=== PATIENT | female | born 1995 | race Caucasian/White ===

== ENCOUNTER 2016-09-10 16:01 | Inpatient (IN) | payer OTHER ==
[~2016-09-10] VITALS: Ht 157.5 cm; Wt 79.8 kg
[2016-09-10 16:43] LABS: HEMOGLOBIN 11.5 gm/dl (12.3-15.3); RED BLOOD COUNT 4.48 M/UL (4.00-5.10); WHITE BLOOD COUNT 6.5 K/UL (4.5-11.0)
[2016-09-12 03:20] LABS: HEMOGLOBIN 11.9 gm/dl (12.3-15.3)
[2016-09-13] MEDS ORDERED: IBUPROFEN600 MG PO (09:22)
== END 2016-09-13 08:18 | disposition home or self-care (01) | DRG 775 ==
LOC: EDBD 16:01 → OB 16:01
PROVIDERS: Obstetrics & Gynecology; ADMIT Obstetrics & Gynecology
PROC: 3E0P7GC Introduction of Other Therapeutic Substance into Female Reproductive, Via Natural or Artificial Opening (ICD-10-PCS; 2016-09-10)
PROC: 10E0XZZ Delivery of Products of Conception, External Approach (ICD-10-PCS; principal; 2016-09-11)
PROC: 3E033VJ Introduction of Other Hormone into Peripheral Vein, Percutaneous Approach (ICD-10-PCS; 2016-09-11)
PROC: 10907ZC Drainage of Amniotic Fluid, Therapeutic from Products of Conception, Via Natural or Artificial Opening (ICD-10-PCS; 2016-09-11)
PROC: 3E0R3CZ (ICD-10-PCS; 2016-09-11)
DX: O24.420 Gestational diabetes mellitus in childbirth, diet controlled (principal); O99.824 Streptococcus B carrier state complicating childbirth; Z3A.39 39 weeks gestation of pregnancy; Z37.0 Single live birth; Z88.6 Allergy status to analgesic agent; Z83.3 Family history of diabetes mellitus; Z82.49 Family history of ischemic heart disease and other diseases of the circulatory system; Z83.49 Family history of other endocrine, nutritional and metabolic diseases
CPT/HCPCS: 36415; 51702; 81001; 82800; 82962; 85014; 85018; 85025; J2405; J2590; J2795; J3010

== ENCOUNTER 2020-12-06 21:07 | Emergency (ER) | payer OTHER ==
[~2020-12-06 21:07] MED LIST: GLUCOPHAGE500 MG PO; IBUPROFEN600 MG PO; PRENATAL VITAM1 EAC8 PO; VENTOLIN HFA 66.7 GM INH; ZOFRAN4 MG PO
== END 2020-12-06 23:40 | disposition home or self-care (01) ==
LOC: ER1 21:07
DX: O98.512 Other viral diseases complicating pregnancy, second trimester (principal); U07.1 COVID-19; Z88.6 Allergy status to analgesic agent
CPT/HCPCS: 99284